=== PATIENT | female | born 1955 | race African-American/Black ===

== ENCOUNTER 2021-02-04 09:43 | Emergency (ER) | payer OTHER ==
[~2021-02-04] VITALS: Ht 160 cm; Wt 75.7 kg
[~2021-02-04 09:43] MED LIST: NORVASC5 MG; VASOTEC2.5 MG
[2021-02-04] MEDS ORDERED: ATORVASTATIN CA10 MG PO (10:19)
[2021-02-04] MEDS ORDERED: LEVOTHYROXINE175 MC1 PO (10:19)
[2021-02-04] MEDS ORDERED: LOTREL 10-20 M1 EACH PO (10:19)
[2021-02-04] MEDS ORDERED: TESSALON PERLE100 M1 PO (13:52)
[2021-02-04] MEDS ORDERED: ZYRTEC10 M3 PO (13:52)
== END 2021-02-04 14:03 | disposition home or self-care (01) ==
LOC: ER 09:43
DX: B34.9 Viral infection, unspecified (principal); Z20.822 Contact with and (suspected) exposure to COVID-19